=== PATIENT | female | born 1940 | race Caucasian/White ===

== ENCOUNTER 2023-12-22 15:52 | Inpatient (IN) | payer MEDICARE, BC ==
[~2023-12-22] VITALS: Ht 167.6 cm; Wt 68.0 kg
[~2023-12-22 15:52] MED LIST: ATROPINE 1% EY1 EACH OP; COMBIGAN 0.2%-010 ML OP; DULCOLAX STOOL100 M1 PO; ENSURE ACTIVE PO; EXELON1 EAC1 T; LORAZEPAM0.5 M1 PO; LUMIGAN50 DRP OPH; METAMUCIL660 GM PO; MIRTAZAPINE15 M1 PO; MORPHINE S100 MG/5 M PO; MUCUS RELIEF600 MG PO; ONDANSETRON4 MG PO; RISPERIDONE M-0.5 MG PO; TRAMADOL HCL50 MG PO; TYLENOL325 M2 PO; ZITHROMAX500 MG PO
[2023-12-22 16:03] VITALS: BP 126/55
[2023-12-22 16:57] LABS: BASO % 0.8 % (0.0-1.0); EOS # 0.2 10*3/uL (0.0-0.4); EOS % 3.6 % (1.0-4.0); HEMATOCRIT 34.9 % (37.0-47.0); LYMPH % 39.8 % (27.0-41.0); MEAN CELL VOLUME 90.9 fl (81.0-99.0); MEAN CORPUSCULAR HGB 30.2 pg (27.0-31.0); MEAN CORPUSCULAR HGB CONC 33.2 g/dl (33.0-37.0); MEAN PLATELET VOLUME 9.4 fl (9.6-12.3); MONO # 0.5 10*3/uL (0.1-1.0); NEUT # 2.3 10*3/uL (2.3-7.9); NEUT % 46.6 % (47.0-73.0); PLATELET COUNT AUTOMATED 263 10*3/uL (130-400); RED BLOOD COUNT 3.84 10*6/uL (4.10-5.10); RED CELL DISTRI WIDTH 12.9 % (0-14.5)
[2023-12-22 17:16] LABS: ALKALINE PHOSPHATASE 74 U/L (46-116); BUN 8 mg/dl (9-23); CHLORIDE 104 mmol/L (98-107); POTASSIUM 2.6 mmol/L (3.4-5.1); SGPT/ALT < 7 U/L (5-49); TOTAL PROTEIN 6.6 gm/dL (6.0-8.0)
[2023-12-22] MEDS ORDERED: POTASSIUM CHLORIDE 20 MEQ TAB PO ONE ×2 (18:10→18:40)
[2023-12-22] MEDS ORDERED: LORazepam 1 MG TAB PO ONE (18:25)
[2023-12-22] MEDS ORDERED: SODIUM CHLORIDE 0.9% 1,000 ML IV ONE (18:40)
[2023-12-22] MEDS ORDERED: HYDROXYZINE PAM25 M1 PO (18:47)
[2023-12-22] MEDS ORDERED: MEMANTINE HCL10 MG PO (18:48)
[2023-12-22] MEDS ORDERED: CEFDINIR300 MG PO (18:48)
[2023-12-22] MEDS ORDERED: MIRTAZAPINE7.5 MG PO (18:49)
[2023-12-22] MEDS ORDERED: POTASSIUM CHLORIDE IN WATER 100 ML IV SCH (19:00)
[2023-12-22] MEDS ORDERED: Ziprasidone Mesylate 20 MG VIAL IM ONE (19:05)
[2023-12-22] MEDS ORDERED: DEXAMETHASONE/NE5 M1 OPH (19:24)
[2023-12-22] MEDS ORDERED: MORPHINE Sulfate 2 MG/ML SYR IV PRN (19:35)
[2023-12-22] MEDS ORDERED: Ondansetron Hydrochloride 4 MG/2 ML VIAL IV PRN (19:35)
[2023-12-22] MEDS ORDERED: Water, Sterile 10 ML VIAL ONE (19:41)
[2023-12-22] MEDS ORDERED: hydrOXYzine pamoate 25 MG CAP PO PRN (19:55)
[2023-12-22] MEDS ORDERED: ACETAMINOPHEN 325 MG TAB PO PRN (19:55)
[2023-12-22] MEDS ORDERED: DOCUSATE SODIUM 100 MG CAP PO PRN (19:55)
[2023-12-22 20:00] VITALS: BP 140/64
[2023-12-22 21:37] LABS: BILIRUBIN Negative (Negative); BLOOD Trace-Intact (Negative); CLARITY Clear (Clear); COLOR Yellow (Yellow); GLUCOSE Negative (Negative); KETONE 2+ (Negative); LEUKO ESTERASE Trace (Negative); NITRITE Negative (Negative)
[2023-12-22 21:53] LABS: BACTERIA 1+
[2023-12-22] MEDS ORDERED: BIMATOPROST 50 DRP BOT OPH SCH (22:00)
[2023-12-22] MEDS ORDERED: Mirtazapine 15 MG TAB PO SCH (22:00)
[2023-12-22] MEDS ORDERED: Memantine Hydrochloride 10 MG TAB PO SCH (22:00)
[2023-12-22] MEDS ORDERED: DEXAMETHASONE OPH SCH (22:00)
[2023-12-22] MEDS ORDERED: [UNRECOGNIZED DRUG - OTHER] OPH SCH (22:00)
[2023-12-23] MEDS ORDERED: Ceftriaxone Sodium 1 GM in SYRINGE INFUSION 10 ML IV SCH
[2023-12-23] MEDS ORDERED: Water, Sterile 10 ML VIAL ONE (00:47)
[2023-12-23 06:04] LABS: BASO % 0.6 % (0.0-1.0); EOS # 0.2 10*3/uL (0.0-0.4); EOS % 3.1 % (1.0-4.0); HEMATOCRIT 36.1 % (37.0-47.0); LYMPH # 1.5 10*3/uL (1.3-4.4); LYMPH % 31.9 % (27.0-41.0); MEAN CELL VOLUME 91.2 fl (81.0-99.0); MEAN CORPUSCULAR HGB 31.1 pg (27.0-31.0); MEAN CORPUSCULAR HGB CONC 34.1 g/dl (33.0-37.0); MEAN PLATELET VOLUME 9.7 fl (9.6-12.3); MONO # 0.4 10*3/uL (0.1-1.0); MONO % 9.2 % (3.0-9.0); NEUT # 2.6 10*3/uL (2.3-7.9); PLATELET COUNT AUTOMATED 238 10*3/uL (130-400); RED BLOOD COUNT 3.96 10*6/uL (4.10-5.10); WHITE BLOOD COUNT 4.8 10*3/uL (4.8-10.8)
[2023-12-23 06:12] LABS: BUN 6 mg/dl (9-23); CHLORIDE 107 mmol/L (98-107); POTASSIUM 3.2 mmol/L (3.4-5.1)
[2023-12-23 08:00] VITALS: BP 155/85
[2023-12-23] MEDS ORDERED: POTASSIUM CHLORIDE 20 MEQ TAB PO ONE (08:25)
[2023-12-23] MEDS ORDERED: Rivastigmine Tartrate 9.5 MG/24 HR PATCH T SCH (10:00)
[2023-12-23] MEDS ORDERED: Enoxaparin Sodium 40 MG/0.4 ML SYR SC SCH (10:00)
[2023-12-23 12:00] VITALS: BP 139/88
[2023-12-23] MEDS ORDERED: VANCOMYCIN/WATER FOR INJ (PEG) 150 ML IV SCH (12:00)
[2023-12-23] MEDS ORDERED: ceFAZolin sodium 1 GM in SYRINGE INFUSION 10 ML IV SCH (14:00)
[2023-12-23] MEDS ORDERED: DOXYCYCLINE HY100 M3 PO (15:12)
== END 2023-12-23 16:16 | DRG 640 ==
LOC: ED 15:52 → EDHOLD 18:42 → ICCU 19:35
PROVIDERS: Internal Medicine; Nurse Practitioner Family; ADMIT Family Medicine; ATTEND Family Medicine
DX: E87.6 Hypokalemia (principal); G93.41 Metabolic encephalopathy; N30.01 Acute cystitis with hematuria; F03.911 Unspecified dementia, unspecified severity, with agitation; Z68.1 Body mass index [BMI] 19.9 or less, adult; D64.9 Anemia, unspecified; R63.6 Underweight; Z66 Do not resuscitate; Z79.899 Other long term (current) drug therapy; Z79.01 Long term (current) use of anticoagulants; Z86.16 Personal history of COVID-19; Z87.440 Personal history of urinary (tract) infections; Z87.01 Personal history of pneumonia (recurrent); Z90.710 Acquired absence of both cervix and uterus

== ENCOUNTER 2024-01-06 13:50 | Emergency (ER) | payer MEDICARE, BC ==
[~2024-01-06 13:50] MED LIST changes: +CEFDINIR300 MG PO; +CYPROHEPTADINE H4 M1 PO; +DEXAMETHASONE/NE5 M1 OPH; +DOXYCYCLINE HY100 M3 PO; +HYDROXYZINE PAM25 M1 PO; +MEMANTINE HCL10 MG PO; +MIRTAZAPINE15 M2 PO; +MIRTAZAPINE7.5 MG PO; +RAMELTEON8 MG PO; +RIVASTIGMINE1 EAC2 T
[2024-01-06] MEDS ORDERED: [UNRECOGNIZED DRUG - OTHER] (14:00)
[2024-01-06] MEDS ORDERED: ENSURE 237 ML237 ML PO (14:01)
[2024-01-06] MEDS ORDERED: LUMIGAN50 DRP OPH (14:01)
[2024-01-06] MEDS ORDERED: MIRTAZAPINE7.5 MG PO (14:01)
[2024-01-06] MEDS ORDERED: HYDROXYZINE HCL25 MG PO (14:02)
[2024-01-06] MEDS ORDERED: DOCUSATE SOD100 MG PO (14:02)
[2024-01-06] MEDS ORDERED: EXELON1 EAC2 TD (14:03)
[2024-01-06 15:18] LABS: BASO % 0.4 % (0.0-1.0); EOS # 0.1 10*3/uL (0.0-0.4); EOS % 0.7 % (1.0-4.0); LYMPH # 1.5 10*3/uL (1.3-4.4); LYMPH % 21.9 % (27.0-41.0); MEAN CELL VOLUME 93.4 fl (81.0-99.0); MEAN CORPUSCULAR HGB 30.3 pg (27.0-31.0); MEAN CORPUSCULAR HGB CONC 32.4 g/dl (33.0-37.0); MEAN PLATELET VOLUME 9.9 fl (9.6-12.3); MONO # 0.7 10*3/uL (0.1-1.0); MONO % 10.3 % (3.0-9.0); NEUT # 4.5 10*3/uL (2.3-7.9); NEUT % 66.4 % (47.0-73.0); PLATELET COUNT AUTOMATED 242 10*3/uL (130-400); RED BLOOD COUNT 3.96 10*6/uL (4.10-5.10); RED CELL DISTRI WIDTH 13.3 % (0-14.5); WHITE BLOOD COUNT 6.8 10*3/uL (4.8-10.8)
[2024-01-06 15:34] LABS: BUN 18 mg/dl (9-23); CHLORIDE 101 mmol/L (98-107); POTASSIUM 3.3 mmol/L (3.4-5.1)
[2024-01-06 15:37] LABS: BILIRUBIN Negative (Negative); BLOOD Negative (Negative); CLARITY Clear (Clear); COLOR Yellow (Yellow); GLUCOSE Negative (Negative); KETONE Trace (Negative); LEUKO ESTERASE Trace (Negative); NITRITE Negative (Negative); PH 6.5 (4.5-8.0)
[2024-01-06 15:38] LABS: ETHYL ALCOHOL < 3.0 mg/dl (<3)
[2024-01-06 15:44] LABS: URINE AMPHETAMINES Negative (1000ng/ml); URINE BARBITURATES Negative (200ng/ml); URINE BENZODIAZEPINES Negative (200ng/ml); URINE CANNABINOIDS (THC) Negative (50ng/ml); URINE COCAINE Negative (300ng/ml); URINE METHADONE Negative (300ng/ml); URINE OPIATES Negative (300ng/ml); URINE PHENCYCLIDINE Negative (25ng/ml)
== END 2024-01-06 20:33 ==
LOC: ED 13:50
PROVIDERS: Physician Assistant Medical
DX: F03.918 Unspecified dementia, unspecified severity, with other behavioral disturbance (principal); Z20.822 Contact with and (suspected) exposure to COVID-19; D64.9 Anemia, unspecified; Z90.710 Acquired absence of both cervix and uterus; Z98.890 Other specified postprocedural states; Z79.899 Other long term (current) drug therapy